=== PATIENT | male | born 1970 | race Caucasian/White ===

== ENCOUNTER → 2016-09-28 | Outpatient (CLI) | payer BC ==
[2016-09-28 13:10] LABS: BASO % 0.5 %; BASO ABS # 0.03 K/uL (0-0.2); COMPLETE YES; EOS % 2.5 %; HEMATOCRIT 43.7 % (42-52); IG% 0.2 %; LYMPH % 35.7 %; LYMPH ABS # 2.04 K/uL (1.2-3.4); MEAN CELL VOLUME 89.5 fL (80-100); MEAN CORPUSCULAR HEMOGLOBIN 31.6 pg (25-34); MEAN CORPUSCULAR HGB CONC 35.2 g/dl (32-36); MONO % 12.4 %; NEUT % 48.7 %; PLATELET COUNT 212 K/uL (130-400); RED BLOOD COUNT 4.88 M/uL (4.7-6.1); WHITE BLOOD COUNT 5.71 K/uL (4.8-10.8)
[2016-09-28 13:49] LABS: BLOOD UREA NITROGEN 20 mg/dl (7-18); BUN/CREATININE RATIO 17.9 (10-20); CALCIUM 9.3 mg/dl (8.5-10.1); CARBON DIOXIDE 28 mmol/L (21-32); CHLORIDE 102 mmol/L (98-107); CHOLESTEROL 210 mg/dl (0-200); GLUCOSE 94 mg/dl (70-99); HDL CHOLESTEROL 52 mg/dl; LDL CHOLESTEROL CALCULATED 125 mg/dl; PHOSPHORUS 3.7 mg/dl (2.5-4.9); SODIUM 138 mmol/L (136-145); TRIGLYCERIDES 164 mg/dl (0-150); VERY LOW DENSITY LIPOPROT CALC 33 mg/dl
== END | disposition home or self-care (01) ==
LOC: C.LABMFLN 07:56
PROVIDERS: ATTEND Family Medicine
DX: K21.9 Gastro-esophageal reflux disease without esophagitis (principal); E78.5 Hyperlipidemia, unspecified